=== PATIENT | female | born 1950 | race Caucasian/White ===

== ENCOUNTER 2016-11-28 06:50 | Day surgery (SDC) | payer MEDICARE, OTHER ==
--- NOTE | ~2016-11-28 | EGD ---
EGD REPORT [facility] [address] [id number] NAME: JILLIAN BRISCOE : [birth year] STATUS : REG [facility] [place] PAT#: [id number] AGE: 66 ADM/REG DATE : 11/28/16 MR#: [id number] REPORT SERV DATE: 11/28/16 DICTATED BY: DARRICK MOON DATE: 11/28/16 REPORT STATUS : Draft TRANSCRIBED BY: [facility] DATE: 11/28/16 Endoscopy Center Patient Name: Jillian Briscoe Date of : 1950 Attending MD: DARRICK MOON MD Procedure Date No Time: 11/28/2016 Procedure: Colonoscopy Indications: High risk colon CA surveillance: Personal history multiple (3 or more) adenomas; last exam 2010. Patient Profile: Informed consent was obtained from the patient by me prior to the procedure. Risks, benefits, and alternatives were discussed including the risk of bleeding, perforation, infection, reaction to medicine, missed lesion, and cardiopulmonary complications. Referring MD: RHONDA FITZPATRICK Medicines: Monitored Anesthesia Care Complications: No immediate complications. Procedure: Pre-Anesthesia Assessment: - ASA Grade Assessment: III - A patient with severe systemic disease. After I obtained informed consent, the scope was passed under direct vision. Throughout the procedure, the patient's blood pressure, pulse, and oxygen saturations were monitored continuously. The PCF [id number] was introduced through the anus and advanced to the cecum, identified by appendiceal orifice and ileocecal valve. The colonoscope was slowly withdrawn with careful examination all mucosal surfaces including specific attention around flexures and tip deflection behind folds; retroflexion performed in rectum. The colonoscopy was performed without difficulty. The patient tolerated the procedure well. The quality of the bowel preparation was adequate. The ileocecal valve, appendiceal orifice and rectum were photographed. Findings: A sessile polyp was found in the transverse colon. The polyp was 7 mm in size. The polyp was removed with a cold snare. Resection and retrieval were complete. A few medium-mouthed diverticula were found in the sigmoid colon and in the descending colon. Internal hemorrhoids were found during retroflexion and were mild. Impression: - One 7 mm polyp in the transverse colon. Resected and retrieved. EGD REPORT [address] [address] NAME: JILLIAN BRISCOE : [birth year] STATUS : REG [facility]#: [id number] AGE: 66 ADM/REG DATE : 11/28/16 MR#: [id number] REPORT SERV DATE: 11/28/16 DICTATED BY: DARRICK MOON DATE: 11/28/16 REPORT STATUS : Draft TRANSCRIBED BY: [facility] DATE: 11/28/16 - Diverticulosis in the sigmoid colon and in the descending colon. - Internal hemorrhoids. Recommendation: - Patient has a contact number available for emergencies. The signs and symptoms of potential delayed complications were discussed with the patient. Return to normal activities tomorrow. Written discharge instructions were provided to the patient. - Regular diet. - Continue present medications. - Await pathology results. - Repeat colonoscopy for surveillance based on pathology results. Procedure Code(s): --- Professional --- 49810, Colonoscopy, flexible, proximal to splenic flexure; with removal of tumor(s), polyp(s), or other lesion(s) by snare technique Diagnosis Code(s): --- Professional --- D12.3, Benign neoplasm of transverse colon K64.8, Other hemorrhoids K57.30, Diverticulosis of large intestine without perforation or abscess without bleeding Z86.010, Personal history of colonic polyps CPT copyright 2013 [employer]. All rights reserved. The codes documented in this report are preliminary and upon retrofit installer review may be revised to meet current compliance requirements. DARRICK MOON MD 11/28/2016 9:14 AM This report has been signed electronically. Number of Addenda: 0 Note Initiated On: 11/28/2016 8:45 AM Scope Withdrawal Time 0 hours 10 minutes 57 seconds [address] [id number]
[~2016-11-28 06:50] MED LIST: ALTACE10 MG PO; ASAB PO; CALTRA600D PO; COLCH6 PO; COQ-10200 MG PO; FEMARA PO; GLUCPH PO; JANUVIA100 MG PO; TRICOR48 PO; VIT D PO; VITAMIN D31000 UNIT PO; Z300 PO; ZOCOR20 PO; ZOLOFT25 MG PO
== END 2016-11-28 23:59 | disposition home or self-care (01) ==
LOC: DMU 06:50
PROVIDERS: Internal Medicine Gastroenterology
PROC: 0DBL8ZZ Excision of Transverse Colon, Via Natural or Artificial Opening Endoscopic (ICD-10-PCS; principal; 2016-11-28 08:30)
DX: Z12.11 Encounter for screening for malignant neoplasm of colon (principal); D12.3 Benign neoplasm of transverse colon; K57.30 Diverticulosis of large intestine without perforation or abscess without bleeding; K64.8 Other hemorrhoids; Z86.010 Personal history of colon polyps; I10 Essential (primary) hypertension; G47.33 Obstructive sleep apnea (adult) (pediatric); Z88.8 Allergy status to other drugs, medicaments and biological substances; Z85.3 Personal history of malignant neoplasm of breast; K76.0 Fatty (change of) liver, not elsewhere classified; E78.00 Pure hypercholesterolemia, unspecified; M19.90 Unspecified osteoarthritis, unspecified site
CPT/HCPCS: 82962; 88305